=== PATIENT | female | born 1960 | race Caucasian/White ===

== ENCOUNTER 2024-01-27 08:28 | Emergency (ER) | payer BC ==
[2024-01-27 08:45] VITALS: BP 161/76; PULSE 68; RESP 20; TEMP 98.4; BMI 25.7
== END 2024-01-27 09:14 | disposition home or self-care (01) ==
LOC: FER 08:28
DX: T23.212A Burn of second degree of left thumb (nail), initial encounter (principal); X12.XXXA Contact with other hot fluids, initial encounter
CPT/HCPCS: 99283-25